=== PATIENT | female | born 1995 | race Caucasian/White ===

== ENCOUNTER 2016-08-11 13:39 | Emergency (ER) | payer OTHER ==
[2016-08-11] MEDS ORDERED: HYDROcodone 5MG/APAP 325MG 1 EA TAB PO ONE (13:51)
--- NOTE | 2016-08-11 13:58 | ED.PDOC ---
History of Present Illness - General Chief Complaint: Upper Extremity Injury Stated Complaint: Wrist pain after kicked by bull Time Seen by Provider: 08/11/16 13:44 Source: patient, RN notes reviewed, Vital Signs reviewed Exam Limitations: no limitations - History of Present Illness Initial Comments: Patient was at work where she was working on a bull and it kicked her in the right wrist. She is having pain & swelling with tingling in her fingers. Occurred: just prior to arrival Pain - Upper Extremity: severe: Wrist, right Method of Injury: direct blow Improving Factors: nothing Worsening Factors: movement Allergies/Adverse Reactions: Allergies NO KNOWN ALLERGY Allergy (Unverified 11/20/13 21:04) Home Medications: Ambulatory Orders Unobtainable [Unobtainable] 11/20/13 Review of Systems - Review of Systems Constitutional: States: no symptoms reported Musculoskeletal: States: see HPI, joint pain, joint swelling Skin: States: no symptoms reported Neurological: States: tingling. Denies: numbness Past Medical History (General) - Patient Medical History Hx Stroke: No Hx Asthma: No Hx Cardiac Disorders: No Hx Congestive Heart Failure: No Family Medical History - Family History Paternal Grandparents Hx Cardiac Disease: Yes Physical Exam - Physical Exam General Appearance: Alert, Comfortable, No apparent distress, Well Developed, Well Groomed, Well Hydrated, Well Nourished Cardiovascular/Respiratory: normal peripheral pulses Wrist Exam: abrasions - Volar aspect of R wrist, bone tenderness, deformity, limited ROM - due to pain, soft tissue tenderness, swelling Hand Exam: normal inspection, non-tender, no evidence of injury, normal ROM - with brisk capillary refill in all fingers. Neuro/Tendon: normal sensation, normal motor functions, normal tendon functions Mental Status: alert, oriented x 3 Skin Exam: normal color, warm/dry Comments: Vital Signs - 24 hr 08/11/16 13:43 Temperature 97.6 F Pulse Rate [ 84 pulse ox] Respiratory 20 Rate Blood Pressure 126/78 [left brachial] O2 Sat by Pulse 98 Oximetry Progress - EKG/XRAY/CT XRAY: Right Wrist: no fracture or dislocation Departure - Departure Clinical Impression: Contusion of wrist, right Qualifiers: Encounter type: initial encounter Qualifier Code: (S60.211A) Contusion of right wrist, initial encounter Time of Disposition: 14:21 Disposition: Discharge to Home or Self Care Condition: Good Departure Forms: ED Discharge - Pt. Copy, Patient Portal Self Enrollment, Work Release Form Instructions: DI for Contusion Diet: resume usual diet Activity: no pushing/pulling with affected limb Home Medications: Ambulatory Orders Unobtainable [Unobtainable] 11/20/13 Additional Instructions: Follow up with your doctor in 3-5 days
[2016-08-11 14:01] VITALS: BP 126/78; TEMP 97.6; O2SAT 98
--- NOTE | 2016-08-11 14:17 | RAD ---
EXAM DESCRIPTION: Wrist,Right 3 Views CLINICAL HISTORY: Pain swelling after kicked by bull COMPARISON: None. IMPRESSION: 3 views of the right wrist show no evidence of acute fracture, focal bone destruction, or joint dislocation. Electronically signed by: Luis Farooq MD 08/11/2016 2:14 PM CDT
== END 2016-08-11 14:32 | disposition home or self-care (01) ==
LOC: ER 13:39
DX: S60.211A Contusion of right wrist, initial encounter (principal); W55.22XA Struck by cow, initial encounter; Y99.0 Civilian activity done for income or pay